=== PATIENT | female | born 1995 | race Asian ===

== ENCOUNTER 2018-08-24 10:12 | Outpatient (CLI) | payer OTHER ==
--- NOTE | 2018-08-24 13:27 | ULT ---
PELVIC ULTRASOUND: HISTORY: Evaluate for size and dates. COMPARISON: None. TECHNIQUE: Transabdominal imaging of the gravid uterus is performed. FINDINGS: The uterus is identified, measuring 10.9 x 6.5 x 9.9 cm. Within the endometrium, there is a gestatio nal sac and a pole. The crown-rump length is 4.67 cm. This corresponds to a gestational age of 11 weeks 3 days. heart tones with a rate of 160 beats per minute. No yolk sac. No subchorio hilda hemorrhage. The left and right adnexa do not demonstrate any solid or cystic masses. No fluid. Neither ovary is appreciated. IMPRESSION: Single intrauterine gestation with heart tones. Gestational age by crown-rump length is 11 wee ks 3 days. POS: [facility]
== END 2018-08-24 10:13 | disposition home or self-care (01) ==
LOC: SCSULT 10:12
PROVIDERS: ATTEND Obstetrics & Gynecology
DX: Z34.01 Encounter for supervision of normal first pregnancy, first trimester (principal); Z3A.11 11 weeks gestation of pregnancy
CPT/HCPCS: 76856

== ENCOUNTER 2018-12-30 13:44 | Outpatient (CLI) | payer OTHER ==
--- NOTE | 2018-12-30 15:59 | ULT ---
LIMITED OB ULTRASOUND: HISTORY: growth. FINDINGS: A single live intrauterine gestation is seen with measurements corresponding to an estimated gestatio nal age of 29 weeks 4 days and an KATHLEEN of 03/13/2019. The estimated weight measures 1370 g or 3 lbs (14% by Hadlock criteria). measurements are as follows: BPD: 7.19 cm (29 weeks 0 days) HC: 27.67 cm (30 weeks 2 days) AC: 24.25 cm (28 weeks 4 days) FL: 5.79 cm (30 weeks 3 days) heart rate measures 139 beats per minute. Cervical length measures 3.7 cm. Placenta is posterio rly located without evidence of placenta previa. DWIGHT measures 8.62 cm. IMPRESSION: Single live intrauterine of 29 weeks' 4 days' estimated gestational age and estimated date of delivery of 03/13/2019. POS: [facility]
== END 2018-12-30 13:45 | disposition home or self-care (01) ==
LOC: BICULT 13:44
PROVIDERS: ATTEND Obstetrics & Gynecology
DX: Z34.83 Encounter for supervision of other normal pregnancy, third trimester (principal); Z3A.29 29 weeks gestation of pregnancy
CPT/HCPCS: 76815

== ENCOUNTER 2019-02-28 05:30 | Inpatient (IN) | payer OTHER, SELFPAY ==
[2019-02-28] MEDS: Lactated Ringer's 1,000 ML IV SCH ×4 (06:18→21:36)
[2019-02-28 06:19] VITALS: BMI 27.8
[2019-02-28] MEDS ORDERED: hydrALAZINE 20 MG/ML VIAL SLOW IVP PRN (06:38)
[2019-02-28] MEDS ORDERED: Ondansetron PF 4 MG/2 ML Vial IVP PRN ×2 (06:38→19:46)
[2019-02-28] MEDS ORDERED: Butorphanol Tartrate 1 MG/ML VIAL SLOW IVP PRN (06:38)
[2019-02-28] MEDS ORDERED: Promethazine HCl 25 MG/ML VIAL IM PRN ×2 (06:38→19:46)
[2019-02-28] MEDS ORDERED: Methylergonovine 0.2 MG/ML VIAL IM PRN (06:45)
[2019-02-28] MEDS ORDERED: NS / Oxytocin 40 units/1000ml 1,000 ML IV SCH (06:45)
[2019-02-28] MEDS ORDERED: Carboprost 250 MCG/ML AMP IM PRN (06:45)
[2019-02-28] MEDS ORDERED: NS w/ Oxytocin 10 units 500 ML IV SCH ×2 (06:45→07:45)
[2019-02-28] MEDS ORDERED: Misoprostol 200 MCG TAB RC PRN (06:45)
[2019-02-28] MEDS ORDERED: Penicillin G Potassium 5 MILL.UNITS VIAL ONE (07:13)
[2019-02-28] MEDS ORDERED: Sodium Chloride 0.9% 100 ML ONE (07:14)
[2019-02-28] MEDS ORDERED: NS w/ Oxytocin 10 units 500 ML ONE (07:14)
[2019-02-28] MEDS ORDERED: Bupivacaine 0.25% 10 ML VIAL ONE (07:25)
[2019-02-28] MEDS ORDERED: Bupivacaine HCl 0.5%/Epinephrine 1:200,000/PF 30 ml Vial ONE (07:25)
[2019-02-28] MEDS ORDERED: NS / Oxytocin 40 units/1000ml 1,000 ML IV PRN (07:37)
[2019-02-28] MEDS ORDERED: Lidocaine 1% (PF) 30 ML VIAL SC PRN (07:37)
[2019-02-28] MEDS ORDERED: HYDROcodone/Acetaminophen 5/325 mg Tablet PO PRN ×2 (07:37)
[2019-02-28] MEDS ORDERED: Ibuprofen 800 MG TAB PO PRN (07:37)
[2019-02-28] MEDS ORDERED: Penicillin G Potassium 5 MILL.UNITS in Sodium Chloride 0.9% 100 ML IVPB SCH (07:45)
[2019-02-28] MEDS ORDERED: Fentanyl 4 mcg/Bup 0.1% Cadd 0 ML ONE (07:59)
[2019-02-28 10:19] LABS: Hemoglobin 13.5 g/dL (12.0-16.0); Mean Corpuscular HGB CONC 33.7 g/dL (32.0-36.0); Mean Corpuscular Hemoglobin 29.6 pg (27.0-31.0); Mean Corpuscular Volume 87.9 fL (78.0-98.0); Mean Platelet Volume 11.9 fL (7.4-10.4); Platelet Count 160 thou/uL (130-400); RBC Distribution Width 12.7 % (11.5-14.5); Red Blood Cell (RBC) Count 4.56 mill/uL (4.20-5.40)
[2019-02-28 10:58] LABS: Syphilis Antibody Nonreactive (Nonreactive); Syphilis Antibody Index 0.02 S/CO (<1.00 Non-Reactive)
[2019-02-28 11:02] LABS: HBSAg Index 0.28 S/CO (0-0.99); Hep B Surf Ag Non-Reactive S/CO (NonReactive)
[2019-02-28] MEDS: Penicillin G 2.5 MILL.units 2.5 MILL.UNITS in Premix Bag 1 BAG IVPB SCH ×3 (11:30→20:34)
[2019-02-28] MEDS ORDERED: Fentanyl 4 mcg/Bup 0.1% Cadd 100 ML ONE (18:37)
[2019-02-28] MEDS ORDERED: diphenhydrAMINE 50 MG/ML VIAL IVP PRN (19:46)
[2019-02-28] MEDS ORDERED: Naloxone HCl 0.4 mg/ml Vial IVP PRN ×2 (19:46)
[2019-02-28] MEDS ORDERED: Acetaminophen 325 MG TAB PO PRN (19:46)
[2019-02-28] MEDS ORDERED: Lactated Ringer's 500 ML IV PRN (19:46)
[2019-02-28] MEDS ORDERED: ePHEDrine/0.9% NaCl/PF SYRINGE 50 mg/10 ml SLOW IVP PRN (19:46)
[2019-02-28] MEDS ORDERED: Fentanyl 4 mcg/Bupivacaine 0.1% Cassette 100 ML EPIDURAL SCH (20:00)
[2019-02-28] MEDS ORDERED: Communication Order-Pharmacy FS SCH (20:00)
[2019-03-01] MEDS: Penicillin G 2.5 MILL.units 2.5 MILL.UNITS in Premix Bag 1 BAG IVPB SCH ×2 (00:31→10:15)
[2019-03-01] MEDS ORDERED: Preparation H Ointment 57 gram tube RC PRN (03:34)
[2019-03-01] MEDS ORDERED: Milk Of Magnesia 30 ML UDCUP PO PRN (03:34)
[2019-03-01] MEDS ORDERED: hydrALAZINE 20 MG/ML VIAL SLOW IVP PRN (03:34)
[2019-03-01] MEDS ORDERED: Bisacodyl 10 MG SUPP PR PRN (03:34)
[2019-03-01] MEDS ORDERED: HYDROcodone/Acetaminophen 5/325 mg Tablet PO PRN (03:34)
[2019-03-01] MEDS ORDERED: Lanolin Ointment 7 GM TUBE TOP PRN (03:34)
[2019-03-01] MEDS ORDERED: NS / Oxytocin 40 units/1000ml 1,000 ML IV SCH (03:45)
[2019-03-01] MEDS: Docusate Calcium (SURFAK) 240 MG CAP PO SCH ×2 (08:33→21:36)
[2019-03-01] MEDS: Ibuprofen 800 MG TAB PO SCH ×3 (08:34→21:27)
[2019-03-01] MEDS: Prenatal Vitamin 1 TAB PO SCH (08:34)
[2019-03-01] MEDS: Ferrous Sulfate 325 MG TAB PO SCH ×2 (08:34→18:12)
[2019-03-01] MEDS ORDERED: Adacel (T-DAP) 0.5 ML SYRINGE IM ONE (09:00)
[2019-03-01] MEDS: HYDROcodone/Acetaminophen 5/325 mg Tablet PO PRN ×2 (09:25→21:27)
[2019-03-01] MEDS: NS w/ Oxytocin 10 units 500 ML IV SCH (10:12)
[2019-03-01] MEDS: Lactated Ringer's 1,000 ML IV SCH ×2 (14:27→23:45)
[2019-03-02] MEDS: Ibuprofen 800 MG TAB PO SCH ×4 (06:28→23:57)
[2019-03-02] MEDS: Lactated Ringer's 1,000 ML IV SCH ×4 (06:28→23:23)
[2019-03-02] MEDS: NS w/ Oxytocin 10 units 500 ML IV SCH ×2 (06:29→23:23)
[2019-03-02] MEDS: Ferrous Sulfate 325 MG TAB PO SCH ×2 (08:43→17:06)
[2019-03-02] MEDS: Docusate Calcium (SURFAK) 240 MG CAP PO SCH ×2 (08:43→21:55)
[2019-03-02] MEDS: Prenatal Vitamin 1 TAB PO SCH (08:43)
--- NOTE | 2019-03-02 15:55 | PDOC.PP ---
Post Progress Note Post Day #: 1 Subjective: Patient reports feeling well. Is ambulating, tolerating PO, and voiding without difficulty. Had some lower abdominal pain this AM but states that it is better now. Is breast and bottle feeding and says it is going well. Says bleeding is a little more than a period but denies passage of any large clots. PO intake tolerated: yes Flatus: yes Ambulation: yes Weight Weight 68.946 kg - Physical Examination General: NAD Cardiovascular: no m/r/g, RRR Respiratory: clear to auscultation bilaterally, non-labored breathing Abdominal: no distention, appropriately TTP Fundus firm & at: just below umbilicus Extremities: negative homans (B) Skin: no rash Neurological: no gross focal deficits Psychiatric: A&Ox3, normal affect Result Diagrams: 02/28/19 06:31 Additional Labs: Post Labs Blood Type B POSITIVE 02/28/19 10:25 Hep Bs Antigen Non-Reactive S/CO (NonReactive) 02/28/19 06:31 (1) care following vaginal delivery Code(s): Z39.2 - ENCOUNTER FOR ROUTINE FOLLOW-UP Status: Acute (2) Positive GBS test Code(s): B95.1 - STREPTOCOCCUS, GROUP B, CAUSING DISEASES CLASSD [id number] Status : Acute - Assessment/Plan 24YO who is PP day #1 s/p @ 39 WGA. PP day #1 s/p @ 39 WGA: - Ambulating well and pain well-controlled on PO meds. VS WNLs since delivery. Continue routine PP care. GBS positive: - Aware, s/p intrapartum PPX. Dispo: Anticipate d/c home tomorrow morning pending uneventful PP course.
[2019-03-02] MEDS: HYDROcodone/Acetaminophen 5/325 mg Tablet PO PRN (21:55)
[2019-03-03] MEDS: Ibuprofen 800 MG TAB PO SCH ×2 (06:16→13:50)
[2019-03-03 08:16] VITALS: BP 131/71; TEMP 97.6
[2019-03-03] MEDS: Prenatal Vitamin 1 TAB PO SCH (09:26)
[2019-03-03] MEDS: Docusate Calcium (SURFAK) 240 MG CAP PO SCH (09:26)
[2019-03-03] MEDS: Ferrous Sulfate 325 MG TAB PO SCH (11:52)
[2019-03-03] MEDS ORDERED: Measles/Mumps/Rubella 10 MCG/0.5 ML VIAL SC ONE (12:00)
== END 2019-03-03 15:30 | disposition home or self-care (01) | DRG 768 ==
LOC: L&D 05:44 → 3SW 03-01 11:32
PROVIDERS: ADMIT Obstetrics & Gynecology; ATTEND Obstetrics & Gynecology
PROC: 10E0XZZ Delivery of Products of Conception, External Approach (ICD-10-PCS; principal; 2019-02-28)
PROC: 0DQR0ZZ Repair Anal Sphincter, Open Approach (ICD-10-PCS; 2019-02-28)
PROC: 10907ZC Drainage of Amniotic Fluid, Therapeutic from Products of Conception, Via Natural or Artificial Opening (ICD-10-PCS; 2019-02-28)
PROC: 3E033VJ Introduction of Other Hormone into Peripheral Vein, Percutaneous Approach (ICD-10-PCS; 2019-02-28)
DX: O99.824 Streptococcus B carrier state complicating childbirth (principal); Z37.0 Single live birth; Z3A.39 39 weeks gestation of pregnancy; O70.20 Third degree perineal laceration during delivery, unspecified; B95.1 Streptococcus, group B, as the cause of diseases classified elsewhere
CPT/HCPCS: 36415; 51702; 76815; 85027; 86780; 86850; 86900; 86901; 87340; 90707; J0670; J2540; J2590; J3490; S0020